=== PATIENT | male | born 1975 ===

== ENCOUNTER 2017-10-28 16:10 | Emergency (ER) | payer OTHER ==
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
[2017-10-28] MEDS ORDERED: DIPHTH/TETANUS/ACEL. PERTUSSIS IM ONLY ONE (16:25)
[2017-10-28] MEDS ORDERED: ceFAZolin(*) 1 GM VIAL 1 GM in NS(*) 0.9% 100 ML ADDVANT BAG 100 ML IV ONE (17:00)
--- NOTE | 2017-10-28 17:01 | RADIOLOGY IMAGING REPORT ---
FACILITY: [facility] PATIENT NAME: Robby Yanez : 1975 MR: [id number] V: [id number] EXAM DATE: ORDERING PHYSICIAN: TERELL DUPREE TECHNOLOGIST: Location: [facility] - [place] Patient: Robby Yanez : 1975 Visit/Account:[id number] Date of Sevice: 10/28/2017 Technique: FEMUR LEFT HISTORY: Staplegun injury Comparison studies: None FINDINGS: Present is an acute impaction fracture involving the distal left femoral diaphysis. The al ignment of the left femur is maintained. No metallic foreign body is appreciated. IMPRESSION: 1. Acute impaction fracture involving the distal left femoral diaphysis. No radiodense retained for eign body. Report Dictated By: Ken De Los Santos DO at 10/28/2017 4:52 PM Report E-Signed By: Ken De Los Santos DO at 10/28/2017 4:57 PM WSN:[id number]
[2017-10-28] MEDS ORDERED: CEPH500T7 PO (17:15)
[2017-10-28 17:30] VITALS: BP 154/83
== END 2017-10-28 17:40 | disposition home or self-care (01) ==
LOC: ER 16:18
DX: S72.402A Unspecified fracture of lower end of left femur, initial encounter for closed fracture (principal)
CPT/HCPCS: 73552; 90471; 90715; 96365; 99283; J0690; J7050